=== PATIENT | male | born 1950 | race Caucasian/White ===

== ENCOUNTER 2018-11-16 19:44 | Emergency (ER) | payer OTHER, BC ==
[~2018-11-16] VITALS: Ht 175.3 cm; Wt 90.7 kg
[2018-11-16 19:55] VITALS: BP 131/72
--- NOTE | 2018-11-16 20:03 | NUR ---
PT AMBULATORY TO BED
[2018-11-16 20:10] VITALS: BP 131/72
--- NOTE | 2018-11-16 20:10 | NUR ---
68 Y/O M PRESETNED TO ED WITH C/O GENREALIZED BODY ACHES AND FEVER X1DAY. / PAIN,. DULL AND CONSTANT. DENIES N/V/D. ERMD NOTIFIED. WILL CONTINUE TO MONITOR.
[2018-11-16] MEDS ORDERED: KETOROLAC 60 MG/2 ML VIAL IM ONE (20:30)
--- NOTE | 2018-11-16 21:28 | NUR ---
Patient discharged with v/s stable. Written and verbal after care instructions given and explained. Patient alert, oriented and verbalized understanding of instructions. Ambulatory with steady gait. All questions addressed prior to discharge. ID band removed. Patient advised to follow up with PMD. Rx of Prednisone, motrin, and tamiflu given. Patient educated on indication of medication including possible reaction and side effects. Opportunity to ask questions provided and answered.
== END 2018-11-16 21:28 | disposition home or self-care (01) ==
LOC: MED 19:44
DX: J02.9 Acute pharyngitis, unspecified (principal); R05 Cough; R52 Pain, unspecified; Z90.49 Acquired absence of other specified parts of digestive tract; Z95.1 Presence of aortocoronary bypass graft
CPT/HCPCS: 96372; 99283; J1885

== ENCOUNTER 2022-06-02 04:55 | Inpatient (IN) | payer BC ==
[~2022-06-02] VITALS: Ht 177.8 cm; Wt 90.3 kg
[2022-06-02 04:59] VITALS: BP 130/89
--- NOTE | 2022-06-02 05:05 | NUR ---
PT TO 2
--- NOTE | 2022-06-02 05:11 | NUR ---
Patient being evaluated by physician at bedside.
[2022-06-02] MEDS ORDERED: ONDANSETRON 4 MG/2 ML VIAL IVP ONE (05:15)
[2022-06-02] MEDS ORDERED: NACL 0.9% 1,000 ML IV ONE (05:15)
[2022-06-02] MEDS ORDERED: MORPHINE SULFATE 4 MG/ML SYR IVP ONE (05:15)
--- NOTE | 2022-06-02 05:28 | NUR ---
COVID-19 swab collected and sent to lab.
[2022-06-02 05:36] LABS: APPEARANCE,URINE CLEAR (CLEAR); BILIRUBIN,URINE NEGATIVE (NEGATIVE); BLOOD, URINE 2+ (NEGATIVE); COLOR,URINE YELLOW (YELLOW); LEUKOCYTE ESTERASE ,URINE NEGATIVE (NEGATIVE); NITRITE, URINE NEGATIVE (NEGATIVE); UGLUCOSE NEGATIVE (NEGATIVE)
[2022-06-02] MEDS ORDERED: PIPERACILLIN/TAZOBACTAM 3.375 GM in DEXTROSE 5% 50 ML IV ONE (05:45)
[2022-06-02] MEDS ORDERED: PIPERACILLIN/TAZOBACTAM 3.375 GM VIAL IV ONE (05:45)
[2022-06-02 06:06] LABS: ALBUMIN 3.5 g/dL (3.4-5.0); ANION GAP 14.8 (8-16); CARBON DIOXIDE 25.1 mmol/L (21-32); CREATININE 1.4 mg/dL (0.6-1.3); POTASSIUM 3.9 mmol/L (3.5-5.1); TOTAL BILIRUBIN 2.5 mg/dL (0.0-1.0)
[2022-06-02 06:17] LABS: RBC,URINE 0-5 /HPF (0-5); WBC,URINE 0-5 /HPF (0-5)
--- NOTE | 2022-06-02 06:21 | NUR ---
PT IS AWKE AND ALERT, COMPLAINING PAIN IN SUPRAPUBIC ARE WITH MOVEMENT 6/10. ROOM AIR. AMBULATORY
[2022-06-02] MEDS ORDERED: ASPI-1822 PO (06:24)
[2022-06-02] MEDS ORDERED: LISI-487 PO (06:24)
--- NOTE | 2022-06-02 07:15 | NUR ---
Received report from STACEY Peace. Assumed care this time.
--- NOTE | 2022-06-02 07:31 | NUR ---
Patient appears to be resting comfortably in bed. Vital Signs within normal limits. Respirations even and unlabored. No complaints of ABD pain, all needs met at this time.
[2022-06-02 07:37] LABS: HEMATOCRIT 45.3 % (36-52); HEMOGLOBIN 15.3 g/dL (12.0-18.0); MEAN CORPUSCULAR HEMOGLOBIN 29 pg (27-31); MEAN CORPUSCULAR HGB CONC 34 g/dL (33-37); MEAN CORPUSCULAR VOLUME 84.5 fL (80-94); PLATELET COUNT (AUTO) 322 K/uL (140-450); RED BLOOD CELL COUNT(AUTO) 5.36 MIL/uL (4.20-6.10); RED CELL DISTRIBUTION WIDTH 13.8 % (11.6-13.7)
[2022-06-02 07:45] LABS: WHITE BLOOD COUNT (AUTO) 29.8 K/uL (4.8-10.8)
[2022-06-02 07:49] LABS: LYMPHOCYTES % (MANUAL) 7 % (20-46); MONOCYTES % (MANUAL) 7 % (5-12)
[2022-06-02] MEDS ORDERED: MAG SULF 2000 MG/WATER PREMIX 50 ML IV PRN (09:30)
[2022-06-02] MEDS ORDERED: DOCUSATE SODIUM 100 MG GELCAP PO PRN (09:30)
[2022-06-02] MEDS ORDERED: LORazepam 2 MG/ML VIAL IVP PRN (09:30)
[2022-06-02] MEDS ORDERED: ZOLPIDEM 10 MG TAB PO PRN (09:30)
[2022-06-02] MEDS ORDERED: POTASSIUM CHLORIDE 10 MEQ TABER PO PRN (09:30)
[2022-06-02] MEDS ORDERED: ACETAMINOPHEN 325 MG TAB PO PRN (09:30)
[2022-06-02] MEDS ORDERED: NACL 0.9% 1,000 ML IV SCH (09:55)
--- NOTE | 2022-06-02 10:07 | NUR ---
PATIENT HAS BEEN SCREENED AND CATEGORIZED LOW NUTRITION RISK. PATIENT WILL BE SEEN WITHIN 7 DAYS OF ADMISSION. 06/02/22-06/09/[address]
--- NOTE | 2022-06-02 10:08 | NUR ---
Patient will be admitted to care of Dr. Greenwood. Admited to TELE. Will go to room 112A. Belongings list completed. Report to STACEY Blanco.
[2022-06-02 11:41] VITALS: BP 117/70
[2022-06-02 12:17] VITALS: BP 128/73
[2022-06-02] MEDS: PIPERACILLIN/TAZOBACTAM 3.375 GM in DEXTROSE 5% 50 ML IV SCH ×2 (13:00→20:38)
[2022-06-02] MEDS: LACTATED RINGERS 1,000 ML IV SCH ×2 (15:45→23:45)
[2022-06-02] MEDS ORDERED: ONDANSETRON 4 MG/2 ML VIAL IVP PRN (15:45)
[2022-06-02] MEDS ORDERED: MEPERIDINE 25 MG/ML SYR IVP PRN (15:45)
[2022-06-02] MEDS ORDERED: HYDROmorphone 1 MG/ML AMP IVP PRN (15:45)
[2022-06-02] MEDS ORDERED: diphenhydrAMINE 50 MG/ML VIAL IVP PRN (15:45)
[2022-06-02] MEDS ORDERED: BUPIVACAINE-MPF 0.25% 30 ML VIAL INJ ONE (15:46)
--- NOTE | 2022-06-02 15:48 | NUR ---
LEFT VIA BED FOR SURGERY
[2022-06-02] MEDS ORDERED: fentaNYL citrate 0.05 MG/ML VIAL ONE (15:50)
[2022-06-02] MEDS ORDERED: PROPOFOL 200 MG/20 ML VIAL IV ONE (15:51)
[2022-06-02] MEDS ORDERED: SUCCINYLCHOLINE CHLORIDE 200 MG/10 ML VIAL IVP ONE (15:51)
[2022-06-02] MEDS ORDERED: HYDROmorphone PFS 2 MG/ML SYR ONE (16:21)
[2022-06-02] MEDS ORDERED: ROCURONIUM 50 MG/5 ML VIAL IV ONE (16:22)
[2022-06-02] MEDS ORDERED: ONDANSETRON 4 MG/2 ML VIAL ONE (16:24)
[2022-06-02] MEDS ORDERED: PHENYLEPHRINE 10 MG/ML VIAL ONE (16:27)
[2022-06-02] MEDS ORDERED: SUGAMMADEX SODIUM 200 MG/2 ML VIAL IV ONE (17:16)
--- NOTE | 2022-06-02 18:45 | NUR ---
RETURNED FROM SURGERY RHONA LEFT LOWER ABDOMEN LAP SITES WITH DERMABOND DRESSING DRY AND INTACT VS 1845 133/70 HR 92 TEMP 98.4 RR 18 O2 SAT 96%RA PAIN 0 VS 1900 128/75 HR 91 TEMP 98.4 RR 18 O2 SAT 97%RA PAIN 0 WILL ENDORSE CAR TO ONCOMING NOC RN
--- NOTE | 2022-06-02 19:15 | NUR ---
RECEIVED PT AWAKE ON BED, ABLE TO MAKE NEEDS KNOWN, S/P LAP APPENDECTOMY WITH ABDOMINAL INCISIONS COVERED WITH DERMABOND, NO BLEEDING NOTED, WITH LEFT LOWER RHONA DRAIN TO BULB SYRINGE WITH 20ML SEROSANGUINEOUS LIGHT PINK DRAINAGE NOTED, COMPLAINING OF 6/10 ABDOMINAL PAIN, WILL MEDICATE PRN, VITAL SIGNS TAKEN PER PROTOCOL, IVF INFUSING WELL, CALL LIGHT WITHIN REACH.
[2022-06-02] MEDS: MORPHINE SULFATE 2 MG/ML SYR IVP PRN ×2 (19:33→23:43)
[2022-06-02 20:00] VITALS: BP 122/49
--- NOTE | 2022-06-02 20:40 | NUR ---
ON CLEAR LIQUID DIET, PROVIDED WITH JELLO AND APPLE JUICE, TOLERATED WELL, DUE ZOSYN IVPB ADMINISTERED, ALL NEEDS ATTENDED.
--- NOTE | 2022-06-02 23:55 | NUR ---
PT COMPLAINING OF PAIN, VITAL SIGNS STABLE, MEDICATED PRN WITH MORPHINE IVP, VOIDED FREELY USING URINAL, CONTINUE TO MONITOR CLOSELY.
[2022-06-03] VITALS: BP 110/66
[2022-06-03] MEDS: MORPHINE SULFATE 2 MG/ML SYR IVP PRN ×2 (03:46→08:43)
[2022-06-03 04:00] VITALS: BP 112/47
[2022-06-03] MEDS: PIPERACILLIN/TAZOBACTAM 3.375 GM in DEXTROSE 5% 50 ML IV SCH ×3 (04:56→21:27)
--- NOTE | 2022-06-03 06:05 | NUR ---
100ML RHONA DRAIN OUTPUT FOR THE WHOLE SHIFT, PT STATED PASSING GAS, DENIES PAIN AT THIS TIME, JELLO PROVIDED PER REQUEST, TOLERATED WELL, MONITORED CLOSELY.
--- NOTE | 2022-06-03 07:21 | NUR ---
PT AWAKE, NO SIGNS OF DISTRESS, REPORT GIVEN TO STACEY FAUST FOR CONTINUITY OF CARE.
[2022-06-03 07:26] LABS: BASOPHILS % (AUTO) 0.1 % (0.0-2.0); HEMATOCRIT 35.9 % (36-52); HEMOGLOBIN 11.8 g/dL (12.0-18.0); LYMPHOCYTES % (AUTO) 4.9 % (20.5-51.1); MEAN CORPUSCULAR HEMOGLOBIN 28 pg (27-31); MEAN CORPUSCULAR HGB CONC 33 g/dL (33-37); MEAN CORPUSCULAR VOLUME 85.8 fL (80-94); MONOCYTES # (AUTO) 1.4 K/uL (0.8-1.0); MONOCYTES % (AUTO) 6.8 % (1.7-9.3); NEUTROPHILS # (AUTO) 17.9 K/uL (1.8-7.7); NEUTROPHILS % (AUTO) 88.2 % (42.2-75.2); PLATELET COUNT (AUTO) 260 K/uL (140-450); RED BLOOD CELL COUNT(AUTO) 4.19 MIL/uL (4.20-6.10); RED CELL DISTRIBUTION WIDTH 13.5 % (11.6-13.7); WHITE BLOOD COUNT (AUTO) 20.3 K/uL (4.8-10.8)
--- NOTE | 2022-06-03 07:35 | NUR ---
GOT REPORT FROM THE NIGHT NURSE, PT AWAKE NO SOB.[id number]
[2022-06-03 07:47] LABS: CARBON DIOXIDE 23.9 mmol/L (21-32); CREATININE 1.1 mg/dL (0.6-1.3); POTASSIUM 3.9 mmol/L (3.5-5.1)
[2022-06-03 08:00] VITALS: BP 125/64
[2022-06-03] MEDS: LACTATED RINGERS 1,000 ML IV SCH ×2 (08:25→17:41)
--- NOTE | 2022-06-03 08:30 | NUR ---
DR. NJ VISITS AND ASSESS PT. PT VERBALIZED OF FEELING NAUSEA AND PAIN ON ABDOMEN AREA. DR. NJ ORDER TO PT TO STARTS OUT OF BED AND TO AMBULATE. MD STATED THAT PT CAN HAVE REGULAR DIET. WHEN PT ABLE TO TOLERATE REGULAR FOOD AND EAT GOOD, LR FLUID CAN DECREASE TO 10 ML/HR FOR KEEP VEIN OPEN (TKO).
[2022-06-03] MEDS ORDERED: ASPIRIN 81 MG TAB.CHEW PO SCH (09:00)
--- NOTE | 2022-06-03 11:45 | NUR ---
DC PLANNING SW MET WITH PT AT BEDSIDE TO COMPLETE ASSESSMENT. PT REPORTS RENTING A ROOM IN A SINGLE STORY HOME, AT THE ADDRESS LISTED ON FILE. PT IDENTIFIED NICOLETTE REEVES - PARTNER, AND ILIANA HELM-SISTER, EMERGENCY CONTACTS. PT DENIED AD IN PLACE AND ACCEPTED AD OFFERED BY SW. PT REPORTS MEETING WITH PCP NEEDED, LAST VISIT; 6 MONTHS AGO. PT REPORTS MEDICATION COMPLIANCE AND DENIES BARRIERS IN ACCESS TO NEEDED MEDICATIONS. PT REPORTS RECEIVING MEDICATION FROM [facility] [address] (IN [employer]) IN [place], WHEN NEEDED. PT REPORTS BEING INDEPENDENT IN ALL ACTIVITIES AND DENIES USE OF DME. PT DENIES HX OF MH/SUB USE. PT DENIES SNF PLACEMENT, HH, DIABETES, DIALYSIS, HOSPICE SERVICES. PT REPORTS ADEQUATE FOOD IN THE HOME. PT REPORTS DC PLAN IS TO RETURN HOME W/ HIS SISTER PROVIDING TRANSPORTATION, WHEN MEDICALLY STABLE. SW INQUIRED ON ADDITIONAL RESOURCES NEED, PT DECLINED. Addendum: 06/04/22 at 0905 by Anton Lyles SS Amended: Links added.
[2022-06-03 12:00] VITALS: BP 125/64
[2022-06-03] MEDS: ONDANSETRON 4 MG/2 ML VIAL IVP PRN ×2 (12:26→21:16)
[2022-06-03] MEDS ORDERED: MORPHINE SULFATE 4 MG/ML SYR IVP PRN ×2 (14:15→14:25)
[2022-06-03] MEDS ORDERED: MORPHINE SULFATE 4 MG/ML SYR ONE (14:30)
--- NOTE | 2022-06-03 14:30 | NUR ---
PT GIVEN MORPHINE 3MG AND WASTED 1MG WITNESSED BY STACEY PEÑA
[2022-06-03 16:00] VITALS: BP 143/74
[2022-06-03 20:00] VITALS: BP 158/77
--- NOTE | 2022-06-03 20:30 | NUR ---
REVISED. NOTES ON 06/03/22 0830 IT'S AN ERROR IN TIME RECORD, IT SHOULD BE 0830PM OR 2030 IN MILLITARY TIME. RECOPY THE NOTES FOLLOWS: "DR. NJ VISITS AND ASSESS PT. PT VERBALIZED OF FEELING NAUSEA AND PAIN ON ABDOMEN AREA. DR. NJ ORDER TO PT TO STARTS OUT OF BED AND TO AMBULATE. MD STATED THAT PT CAN HAVE REGULAR DIET. WHEN PT ABLE TO TOLERATE REGULAR FOOD AND EAT GOOD, LR FLUID CAN DECREASE TO 10 ML/HR FOR KEEP VEIN OPEN (TKO)".
--- NOTE | 2022-06-03 20:31 | NUR ---
DR. ABBOTT DISCONTINUE PAIN MEDICATION MORPHINE.
[2022-06-03] MEDS: HYDROcodone/APAP 5/325 MG 1 TAB TAB PO PRN (21:14)
--- NOTE | 2022-06-03 21:14 | NUR ---
PT COMPLAINTS OF ABDOMINAL PAIN 11/08, PAIN MEDICATION NORCO ADMINISTERED ORDER.
--- NOTE | 2022-06-03 21:16 | NUR ---
PT COMPLAINTS OF NAUSEA, ZOFRAN ADMINISTERED ORDER.
--- NOTE | 2022-06-03 22:14 | NUR ---
REASSESSMENT OF PAIN, PT VERBALIZED NO PAIN 0/10.
[2022-06-04] MEDS: LACTATED RINGERS 1,000 ML IV SCH (01:05)
[2022-06-04 04:00] VITALS: BP 146/69
--- NOTE | 2022-06-04 04:30 | NUR ---
PT IS ASLEEP.
[2022-06-04] MEDS: PIPERACILLIN/TAZOBACTAM 3.375 GM in DEXTROSE 5% 50 ML IV SCH ×3 (04:42→21:41)
[2022-06-04] MEDS: HYDROcodone/APAP 5/325 MG 1 TAB TAB PO PRN ×3 (04:49→15:41)
--- NOTE | 2022-06-04 04:49 | NUR ---
PT COMPLAINTS OF ABDOMINAL PAIN 11/08, PAIN MEDICATION NORCO ADMINISTERED ORDER.
--- NOTE | 2022-06-04 04:49 | NUR ---
PT COMPLAINTS OF ABDOMINAL PAIN 11/08, PAIN MEDICATION NORCO ADMINISTERED ORDER.
--- NOTE | 2022-06-04 07:30 | NUR ---
PT IS ON STABLE CONDITION. ALL SAFETY MEASURES ARE IN PLACE. ENDORSED TO DAY SHIFT NURSE FOR CONTINUITY OF CARE.
[2022-06-04 07:31] LABS: ANION GAP 9.8 (8-16); CARBON DIOXIDE 28.5 mmol/L (21-32); POTASSIUM 4.3 mmol/L (3.5-5.1)
[2022-06-04 07:43] LABS: BASOPHILS % (AUTO) 0.2 % (0.0-2.0); EOSINOPHILS # (AUTO) 0.1 K/uL (0-0.4); EOSINOPHILS % (AUTO) 0.3 % (0.0-4.0); HEMATOCRIT 38.3 % (36-52); HEMOGLOBIN 12.8 g/dL (12.0-18.0); LYMPHOCYTES # (AUTO) 1.3 K/uL (2.0-11.5); LYMPHOCYTES % (AUTO) 7.4 % (20.5-51.1); MEAN CORPUSCULAR HEMOGLOBIN 29 pg (27-31); MEAN CORPUSCULAR HGB CONC 33 g/dL (33-37); MEAN CORPUSCULAR VOLUME 85.4 fL (80-94); MONOCYTES # (AUTO) 1.3 K/uL (0.8-1.0); MONOCYTES % (AUTO) 7.9 % (1.7-9.3); NEUTROPHILS # (AUTO) 14.3 K/uL (1.8-7.7); NEUTROPHILS % (AUTO) 84.2 % (42.2-75.2); PLATELET COUNT (AUTO) 308 K/uL (140-450); RED BLOOD CELL COUNT(AUTO) 4.48 MIL/uL (4.20-6.10); RED CELL DISTRIBUTION WIDTH 13.7 % (11.6-13.7)
--- NOTE | 2022-06-04 07:49 | NUR ---
GOT REPORT FROM THE NIGHT NURSE. PT IS AWAKE NO SOB. DISCUSSED POC [id number]
[2022-06-04 08:00] VITALS: BP 146/74
[2022-06-04] MEDS: ONDANSETRON 4 MG/2 ML VIAL IVP PRN ×2 (10:08→18:15)
[2022-06-04 12:00] VITALS: BP 146/74
[2022-06-04 16:00] VITALS: BP 139/75
[2022-06-04] MEDS: CYCLOBENZAPRINE 10 MG TAB PO PRN (18:14)
--- NOTE | 2022-06-04 19:15 | NUR ---
RECEIVED ENDORSEMENT FROM DAY SHIFT NURSE TO CONTINUE THE CARE. PT IS AWAKE, ALERT AND VERBALIZED NEEDS. IV SITE ON LEFT AC INTACT. PT IS NOW ON REGULAR DIET, CONSUMED 30% OF DINNER. PT ABLE TO AMBULATE TO RESTROOM INDEPENDENTLY. CONTINUE THE CARE.
--- NOTE | 2022-06-04 20:30 | NUR ---
DRAIN RHONA = 80 ML. PT IS ON STABLE CONDITION. PT COMPLAINTS OF SLIGHT NAUSEA BUT NO MEDICATION NEEDED AT THIS TIME.
--- NOTE | 2022-06-04 22:10 | NUR ---
PT ASLEEP. NO SOB OR DISTRESS. CHEST RISE AND FALL EVENLY.
--- NOTE | 2022-06-05 01:01 | NUR ---
IV LOCK IS DISLODGED, DISCONTINUE OLD IV AND RESTART A NEW IV LINE ON LEFT HAND 22g WITH A GOOD BLOOD RETURN. PT TOLERATES WELL.
[2022-06-05] MEDS: HYDROcodone/APAP 5/325 MG 1 TAB TAB PO PRN ×4 (01:07→19:10)
--- NOTE | 2022-06-05 03:15 | NUR ---
PT IS SLEEPING. NO SOB OR DISTRESS.
[2022-06-05 04:00] VITALS: BP 143/77
[2022-06-05] MEDS: PIPERACILLIN/TAZOBACTAM 3.375 GM in DEXTROSE 5% 50 ML IV SCH ×3 (04:43→20:53)
--- NOTE | 2022-06-05 07:00 | NUR ---
RHONA DRAIN = 60 ML. PT IS ON STABLE CONDITION.
[2022-06-05 07:17] LABS: BASOPHILS % (AUTO) 0.4 % (0.0-2.0); EOSINOPHILS # (AUTO) 0.2 K/uL (0-0.4); EOSINOPHILS % (AUTO) 1.7 % (0.0-4.0); HEMATOCRIT 39.1 % (36-52); HEMOGLOBIN 13.1 g/dL (12.0-18.0); LYMPHOCYTES # (AUTO) 1.2 K/uL (2.0-11.5); LYMPHOCYTES % (AUTO) 10.4 % (20.5-51.1); MEAN CORPUSCULAR HEMOGLOBIN 29 pg (27-31); MEAN CORPUSCULAR HGB CONC 34 g/dL (33-37); MEAN CORPUSCULAR VOLUME 84.9 fL (80-94); MONOCYTES # (AUTO) 1.2 K/uL (0.8-1.0); MONOCYTES % (AUTO) 10.6 % (1.7-9.3); NEUTROPHILS % (AUTO) 76.9 % (42.2-75.2); PLATELET COUNT (AUTO) 343 K/uL (140-450); RED CELL DISTRIBUTION WIDTH 13.4 % (11.6-13.7); WHITE BLOOD COUNT (AUTO) 11.7 K/uL (4.8-10.8)
--- NOTE | 2022-06-05 07:30 | NUR ---
BEDSIDE REPORT RECEIVED FROM NIGHTSHIFT NURSE. LR NOTED WITH IVBP ANTIBIOTICS CONNECTED. STOPPED LR AND CHANGED FLUIDS AND TUBING TO NS FOR TKO. PT A/O X4. NO SOB OR RESPIRATORY DISTRESS. ON RA. S/P APPENDECTOMY WITH LLQ WITH RHONA DRAIN. ABDOMINAL SURGICAL INCISION WITH NO SIGNS OF INFECTION. NEEDS ALL MET AT THIS TIME. ALL SAFETY MEASURES IN PLACE.
[2022-06-05 07:41] LABS: ANION GAP 12.2 (8-16); CARBON DIOXIDE 25.9 mmol/L (21-32); CREATININE 0.9 mg/dL (0.6-1.3); POTASSIUM 4.1 mmol/L (3.5-5.1)
[2022-06-05] MEDS: ONDANSETRON 4 MG/2 ML VIAL IVP PRN (08:38)
[2022-06-05] MEDS: CYCLOBENZAPRINE 10 MG TAB PO PRN ×2 (08:42→16:55)
--- NOTE | 2022-06-05 08:44 | NUR ---
PRN ZOFRAN, NORCO GIVEN. PT C/O NAUSEA AND PAIN. MEDICATIONS ADMINISTERED. NEEDS ALL MET. ALL SAFETY MEASURES IN PLACE.
[2022-06-05] MEDS: METOCLOPRAMIDE 10 MG TAB PO SCH ×2 (11:39→16:51)
--- NOTE | 2022-06-05 11:50 | NUR ---
RHONA DRAIN TEACHING GIVEN. 5 ML OUTPUT FROM RHONA DRAIN. DRESSING C/D/I.
--- NOTE | 2022-06-05 15:15 | NUR ---
DR. WELLS ROUNDED ON PT AND DISCONTINUED LLQ RHONA DRAIN, GAUZE WITH IODINE AND DRESSING APPLIED. PT TOLERATED WELL. NEEDS ALL MET. ALL SAFETY MEASURES IN PLACE.
[2022-06-05 16:00] VITALS: BP 158/75
--- NOTE | 2022-06-05 19:20 | NUR ---
BEDSIDE REPORT GIVEN TO NIGHTSHIFT NURSECATARINO.
[2022-06-06] VITALS: BP 132/72
[2022-06-06] MEDS: HYDROcodone/APAP 5/325 MG 1 TAB TAB PO PRN (02:16)
--- NOTE | 2022-06-06 03:02 | NUR ---
PATIENT STABLE VITALS SIGNS IN NORMAL LIMITS COMPLAINING OF PAIN AND NAUSEAS WE GAVE PAIN AND NAUSEAS MEDICATION
--- NOTE | 2022-06-06 03:03 | NUR ---
WOUND CARE WAS DONE WOUND IS DRY AND INTACT
[2022-06-06] MEDS: PIPERACILLIN/TAZOBACTAM 3.375 GM in DEXTROSE 5% 50 ML IV SCH (05:02)
[2022-06-06] MEDS: METOCLOPRAMIDE 10 MG TAB PO SCH (05:03)
[2022-06-06 06:48] LABS: BASOPHILS # (AUTO) 0.1 K/uL (0.00-0.22); BASOPHILS % (AUTO) 0.5 % (0.0-2.0); EOSINOPHILS # (AUTO) 0.2 K/uL (0-0.4); EOSINOPHILS % (AUTO) 1.4 % (0.0-4.0); HEMOGLOBIN 13.4 g/dL (12.0-18.0); LYMPHOCYTES # (AUTO) 1.4 K/uL (2.0-11.5); LYMPHOCYTES % (AUTO) 11.7 % (20.5-51.1); MEAN CORPUSCULAR HEMOGLOBIN 29 pg (27-31); MEAN CORPUSCULAR HGB CONC 34 g/dL (33-37); MEAN CORPUSCULAR VOLUME 85.5 fL (80-94); MONOCYTES # (AUTO) 1.4 K/uL (0.8-1.0); MONOCYTES % (AUTO) 11.8 % (1.7-9.3); NEUTROPHILS % (AUTO) 74.6 % (42.2-75.2); PLATELET COUNT (AUTO) 359 K/uL (140-450); RED BLOOD CELL COUNT(AUTO) 4.69 MIL/uL (4.20-6.10); RED CELL DISTRIBUTION WIDTH 13.3 % (11.6-13.7); WHITE BLOOD COUNT (AUTO) 12.1 K/uL (4.8-10.8)
[2022-06-06 07:31] LABS: ANION GAP 13.3 (8-16); CARBON DIOXIDE 26.1 mmol/L (21-32); CREATININE 0.9 mg/dL (0.6-1.3); POTASSIUM 4.4 mmol/L (3.5-5.1)
[2022-06-06 08:00] VITALS: BP 141/79
[2022-06-06] MEDS ORDERED: AMOX-999 PO (09:21)
[2022-06-06] MEDS ORDERED: HYDR-5080 PO (09:22)
[2022-06-06] MEDS ORDERED: ONDA-188 SL (09:23)
[2022-06-06 09:42] VITALS: BP 132/72
--- NOTE | 2022-06-06 10:13 | NUR ---
PT GIVEN DISCHARGE INSTRUCTIONS VERBALIZED UNDERSTANDING MADE AWARE RX AT [facility] PREFERRED PHARMACY AND ADVISED TO CALL SURGEON TODAY FOR FOLLOW UP APPOINTMENT NO DISTRESS NOTED ALL NEEDS ANTICIPATED AND MET FAMILY IN TO DIESEL LOCOMOTIVE FIRER/FIREMAN PT SALINE LOCK REMOVED LAP SITES AT ABDOMEN DRY AND INTACT ALL NEEDS MET
[2022-06-06] MEDS ORDERED: IBUP-2213 PO (11:17)
== END 2022-06-06 10:25 | disposition home or self-care (01) | DRG 853 ==
LOC: MED 04:55 → MTU 09:27
PROVIDERS: ADMIT Family Medicine; ATTEND Family Medicine
PROC: 0W9H4ZZ Drainage of Retroperitoneum, Percutaneous Endoscopic Approach (ICD-10-PCS; 2022-06-02)
PROC: 0DTJ4ZZ Resection of Appendix, Percutaneous Endoscopic Approach (ICD-10-PCS; principal; 2022-06-02 15:30)
DX: A41.9 Sepsis, unspecified organism (principal); K35.33 Acute appendicitis with perforation, localized peritonitis, and gangrene, with abscess; N17.0 Acute kidney failure with tubular necrosis; K68.19 Other retroperitoneal abscess; E87.1 Hypo-osmolality and hyponatremia; E86.0 Dehydration; I10 Essential (primary) hypertension; I25.10 Atherosclerotic heart disease of native coronary artery without angina pectoris; E80.6 Other disorders of bilirubin metabolism; B96.20 Unspecified Escherichia coli [E. coli] as the cause of diseases classified elsewhere; B96.6 Bacteroides fragilis [B. fragilis] as the cause of diseases classified elsewhere; Z20.822 Contact with and (suspected) exposure to COVID-19; Z90.49 Acquired absence of other specified parts of digestive tract; Z95.1 Presence of aortocoronary bypass graft; Z79.82 Long term (current) use of aspirin
CPT/HCPCS: 36415; 71045; 80048; 80053; 81001; 82374; 83605; 83690; 83735; 85025; 86886; 86900; 86901; 87040; 87070; 87075; 87081; 87205; 88304; 93005; 96365; 96375; 99291; J0330; J1170; J2270; J2370; J2405; J2543; J2704; J3010; J3490; J7030; J7060; J8597; Q0092; Q9967